=== PATIENT | male | born 2000 | race African-American/Black ===

== ENCOUNTER 2021-09-14 21:32 | Emergency (ER) | payer MEDICAID ==
[~2021-09-14] VITALS: Ht 180.3 cm; Wt 75.0 kg
[2021-09-14 21:48] VITALS: BP 145/77
[2021-09-14] MEDS ORDERED: ALBU2.5V13 NEB (22:35)
[2021-09-14] MEDS ORDERED: BENZ-16 MT (22:35)
== END 2021-09-14 23:35 | disposition home or self-care (01) ==
LOC: ER 21:32
DX: B34.9 Viral infection, unspecified (principal); R03.0 Elevated blood-pressure reading, without diagnosis of hypertension; J45.909 Unspecified asthma, uncomplicated; Z79.51 Long term (current) use of inhaled steroids; Z91.012 Allergy to eggs
CPT/HCPCS: 99283